=== PATIENT | female | born 1975 | race Caucasian/White ===

== ENCOUNTER → 2017-02-21 | Outpatient (CLI) | payer BC ==
[~2017-02-21] MED LIST: IBUP600T44 PO; PRENTAB26 PO
== END | disposition home or self-care (01) ==
LOC: C.PAPS 15:08
PROVIDERS: ATTEND Obstetrics & Gynecology
DX: Z01.419 Encounter for gynecological examination (general) (routine) without abnormal findings (principal)

== ENCOUNTER → 2018-03-28 | Outpatient (CLI) | payer BC ==
--- NOTE | 2018-03-29 07:58 | MAMMOGRAPHY REPORT ---
BILATERAL DIGITAL DIAGNOSTIC MAMMOGRAM TOMOSYNTHESIS AND TARGETED RIGHT ULTRASOUND: 03/28/2018 CLINICAL HISTORY: Callback from screening mammogram for right breast asymmetries. Also a repeat left cc view was recommended. TECHNIQUE: The study was acquired using full field digital technology and interpreted from soft copy. Breast tomosynthesis in addition to standard 2D mammography was performed. Spot compression right C C and MLO 2D and tomosynthesis images and 2D left cc view was obtained. COMPARISON: Comparison is made to exam dated: 03/16/2018 mammogram - [facility]. BREAST COMPOSITION: The tissue of both breasts is heterogeneously dense, which may obscure small mass es. FINDINGS: A repeat left cc view was obtained to include more posterior lateral tissue and to obtain the nipple in profile. The repeat left cc view shows no suspicious masses, calcifications, or areas of architec tural distortion. Spot compression views of the right breast demonstrate a persistent asymmetry with in the right medial breast on the cc view, which has the appearance of probable normal fibroglandular tissue on the tomosynthesis images. There is a persistent lobulated circumscribed 7 mm mass within the right lateral breast middle depth seen on the cc view. Targeted ultrasound was performed of the right medial breast in the region of the mammographic asymme try, which shows sonographically normal tissue without evidence of a mass or other suspicious sonogra phic abnormality. In the right 9:00 breast, 6 cm from the nipple, there is a oval circumscribed anec hoic mass with 1-2 thin internal septations, measuring 5 x 3 x 4 mm. This corresponds with the nodul ar asymmetry in the right lateral breast mammographically and is compatible with a benign cyst. IMPRESSION: ACR-BI-RADS CATEGORY 3: PROBABLY BENIGN, ULTRASOUND ACR-BI-RADS CATEGORY 3: PROBABLY DEYSI GN 1. Benign 5 mm cyst in the right 9:00 breast on ultrasound, which corresponds with a mammographic no dular asymmetry. 2. Persistent right medial breast asymmetry, without a corresponding suspicious sonographic abnormal ity evident. The asymmetry is probably benign and likely represents normal fibroglandular tissue. R ecommend follow-up diagnostic tomosynthesis mammograms and possible ultrasound of the right breast in 6 months, given no priors to document stability. 3. No mammographic evidence of malignancy in the left breast. The patient has been verbally notified of the results. Some breast cancers are not detected with mammography. A negative mammographic report should not otto y biopsy if a clinically suggestive mass is present. Bernadette Valdez M.D. ah/:03/28/2018 13:49:57 Travel Registered Nurse Nicu: RT Richard(R)(M), [facility]; Bernadette Valdez MD, [facility] letter sent: Follow Up Recommended 3 OVERALL STUDY BIRADS: 3 Probably benign
== END | disposition home or self-care (01) ==
LOC: C.MAMM 13:19
PROVIDERS: ATTEND Family Medicine
DX: N64.89 Other specified disorders of breast (principal); N60.01 Solitary cyst of right breast